=== PATIENT | male | born 1960 | race Caucasian/White ===

== ENCOUNTER 2019-05-10 02:55 | Emergency (ER) | payer SELFPAY ==
[~2019-05-10] VITALS: Ht 195.6 cm; Wt 87.9 kg
[2019-05-10 05:33] VITALS: BP 126/82
== END 2019-05-10 05:58 | disposition home or self-care (01) ==
LOC: ED 05:13
DX: T78.3XXA Angioneurotic edema, initial encounter (principal); I10 Essential (primary) hypertension; Z87.891 Personal history of nicotine dependence
CPT/HCPCS: 96374; 96375; 99283; J1200; J2930; J3490